=== PATIENT | male | born 1930 | race Caucasian/White ===

== ENCOUNTER 2018-02-23 15:21 | Inpatient (IN) | payer MEDICARE ==
[2018-02-23 17:08] VITALS: BMI 23.1
[2018-02-23] MEDS ORDERED: Furosemide 40 MG/4 ML VIAL SLOW IVP SCH (17:30)
[2018-02-23] MEDS ORDERED: Digoxin 0.5 MG/2 ML AMP SLOW IVP SCH ×2 (17:30→22:00)
[2018-02-23] MEDS ORDERED: Diltiazem HCl 125 MG, Admixture Fee 1 EACH in Sodium Chloride 0.9% 100 ML IVPB SCH (17:30)
[2018-02-23 17:43] LABS: #Basophils 0.1 thou/uL (0.0-0.2); #Eosinphils 0.1 thou/uL (0.0-0.7); #Lymphocytes 2.3 thou/uL (1.20-3.40); #Monocytes 0.8 thou/uL (0.11-0.59); #Neutrophils 5.2 thou/uL (1.40-6.50); %Basophils 0.6 % (0.0-1.0); %Eosinophils 1.6 % (0.0-10.0); %Lymphocytes 26.8 % (21.0-51.0); %Monocytes 9.4 % (0.0-10.0); %Neutrophils 61.5 % (42.0-75.0); Hemoglobin 14.2 g/dL (14.0-18.0); Mean Corpuscular HGB CONC 32.7 g/dL (32.0-36.0); Mean Corpuscular Hemoglobin 32.3 pg (27.0-31.0); Mean Corpuscular Volume 98.9 fL (78.0-98.0); Mean Platelet Volume 7.5 fL (7.4-10.4); Platelet Count 125 thou/uL (130-400); RBC Distribution Width 14.6 % (11.5-14.5); Red Blood Cell (RBC) Count 4.41 mill/uL (4.70-6.10); White Blood Cell (WBC) Count 8.4 thou/uL (4.8-10.8)
[2018-02-23 17:52] LABS: INR-International Normal Ratio 1.4; PTT 38.7 SEC (22.9-36.1); Prothrombin Time 17.6 SEC (12.0-14.7)
--- NOTE | 2018-02-23 18:00 | RAD ---
RADIOGRAPH CHEST 1 VIEW: Date: 02/23/2018 Time: 6:25 p.m. HISTORY: An 87-year-old male with new onset atrial fibrillation. COMPARISON: 04/19/2016 FINDINGS: There is magnification of the cardiac shadow. Mild, faint, patchy scattered densities in both lungs. Uncertain whether chronic or acute. These appear more prominent than on the prior study. No gross consolidation. Elevation of the left hemidiaphragm. IMPRESSION: 1. Nonspecific mild, faint bilateral pulmonary densities. 2. Cardiomegaly. 3. Elevated left hemidiaphragm. RENETTA [] POS: LAUREL
[2018-02-23 18:04] LABS: ALT (SGPT) 112 U/L (8-55); AST (SGOT) 53 U/L (5-34); Albumin 3.7 g/dL (3.4-4.8); Alkaline Phosphatase 147 U/L (40-150); Anion Gap 13 mmol/L (10-20); BUN (Urea Nitrogen) 36 mg/dL (8.4-25.7); Bilirubin, Total 3.9 mg/dL (0.2-1.2); Calc. Creatinine Clearance 33 mL/min (70-130); Calcium 8.6 mg/dL (7.8-10.44); Carbon Dioxide 25 mmol/L (23-31); Chloride 103 mmol/L (98-107); Estimated GFR-MDRD 47; Globulin 2.2 g/dL (2.4-3.5); Glucose 93 mg/dL (83-110); Magnesium 2.3 mg/dL (1.6-2.6); Potassium 3.2 mmol/L (3.5-5.1); Protein, Total 5.9 g/dL (5.8-8.1); Sodium 138 mmol/L (136-145)
[2018-02-23] MEDS ORDERED: Warfarin Sodium 5 MG TAB PO SCH (18:15)
[2018-02-23] MEDS: Carvedilol 3.125 MG TAB PO SCH (20:07)
[2018-02-23] MEDS: Rosuvastatin 20 MG TAB PO SCH (20:09)
[2018-02-23] MEDS: Enoxaparin Sodium 60 MG/0.6 ML SYRINGE SC SCH (20:09)
[2018-02-24] MEDS: Carvedilol 3.125 MG TAB PO SCH ×2 (08:47→20:57)
[2018-02-24] MEDS: Enoxaparin Sodium 60 MG/0.6 ML SYRINGE SC SCH ×2 (08:47→20:16)
[2018-02-24] MEDS: Potassium Chloride 20 MEQ TAB PO SCH ×2 (08:48→16:48)
[2018-02-24] MEDS ORDERED: Furosemide 40 MG/4 ML VIAL SLOW IVP SCH (09:00)
[2018-02-24] MEDS ORDERED: Potassium Chloride 20 MEQ TAB PO SCH (09:00)
[2018-02-24] MEDS ORDERED: Prevnar 13-Val Conj/PF 0.5 ML SYRINGE IM ONE (09:00)
[2018-02-24 09:31] LABS: INR-International Normal Ratio 1.3; Prothrombin Time 16.9 SEC (12.0-14.7)
[2018-02-24 09:44] LABS: Anion Gap 13 mmol/L (10-20); BUN (Urea Nitrogen) 32 mg/dL (8.4-25.7); Calc. Creatinine Clearance 37 mL/min (70-130); Calcium 8.6 mg/dL (7.8-10.44); Carbon Dioxide 25 mmol/L (23-31); Chloride 104 mmol/L (98-107); Cholesterol 99 mg/dl (< 200 Desired); Estimated GFR-MDRD 54; Glucose 108 mg/dL (83-110); HDL Cholesterol 20 mg/dL (>60 Neg Risk); LDL Cholesterol, Calculated 64 mg/dL; Potassium 3.1 mmol/L (3.5-5.1); Sodium 139 mmol/L (136-145); Triglycerides 75 mg/dL (Less than 150)
[2018-02-24] MEDS ORDERED: Warfarin Sodium 5 MG TAB PO SCH (17:00)
[2018-02-24] MEDS ORDERED: Digoxin 0.25 MG TAB PO SCH (18:30)
[2018-02-24] MEDS: Apixaban 5 MG TAB PO SCH (20:16)
[2018-02-24] MEDS: Rosuvastatin 20 MG TAB PO SCH (20:16)
[2018-02-25 06:03] LABS: Anion Gap 10 mmol/L (10-20); BUN (Urea Nitrogen) 28 mg/dL (8.4-25.7); Calc. Creatinine Clearance 44 mL/min (70-130); Calcium 8.5 mg/dL (7.8-10.44); Carbon Dioxide 30 mmol/L (23-31); Chloride 103 mmol/L (98-107); Estimated GFR-MDRD 65; Glucose 97 mg/dL (83-110); Potassium 3.4 mmol/L (3.5-5.1); Sodium 140 mmol/L (136-145)
[2018-02-25] MEDS: Digoxin 0.125 MG TAB PO SCH (08:26)
[2018-02-25] MEDS: Furosemide 40 MG TAB PO SCH (08:27)
[2018-02-25] MEDS: Apixaban 5 MG TAB PO SCH ×2 (08:27→20:24)
[2018-02-25] MEDS: Potassium Chloride 20 MEQ TAB PO SCH ×2 (08:27→17:40)
[2018-02-25 09:29] LABS: Anion Gap 11 mmol/L (10-20); BUN (Urea Nitrogen) 27 mg/dL (8.4-25.7); Calc. Creatinine Clearance 39 mL/min (70-130); Calcium 8.5 mg/dL (7.8-10.44); Carbon Dioxide 30 mmol/L (23-31); Chloride 102 mmol/L (98-107); Estimated GFR-MDRD 57; Glucose 142 mg/dL (83-110); Potassium 4.1 mmol/L (3.5-5.1); Sodium 139 mmol/L (136-145)
[2018-02-25] MEDS: Carvedilol 3.125 MG TAB PO SCH ×2 (09:56→20:24)
--- NOTE | 2018-02-25 12:21 | PQF ---
CLINICAL DOCUMENTATION IMPROVEMENT CLARIFICATION FORM: ICD-10 Updated PLEASE DO AN ADDENDUM TO THE PROGRESS NOTE WITH ANY DOCUMENTATION UPDATES OR ADDITIONS AND CARRY THROUGH TO DC SUMMARY. THANK YOU. DATE: 02/25 ATTN: DR. HUGO GOLDMAN Please exercise your independent, professional judgment in responding to the clarification form. Clinical indicators are provided on the bottom of this form for your review. Please check appropriate box(s): SYSTOLIC HEART FAILURE ACUITY [ ] Acute [ x ] Acute on Chronic [ ] Chronic [x ] Other diagnosis _new onset atrial fibrillation with fast ventricular response, HR 146/min [ ] Unable to determine For continuity of documentation, please document condition throughout progress notes and discharge summary. Thank You. CLINICAL INDICATORS - SIGNS / SYMPTOMS / LABS PHYSICIAN H&P 02/23: WIGGINS WALKING IN THE HOUSE. 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 DENIES PND OR ORTHOPNEA. PN DATED 02/24: EXTREMITIES: 1+ EDEMA; ASSESSMENT: 4) SYSTOLIC CHF PN DATED 02/25: EXTREMITIES: NO EDEMA; ASSESSMENT: 3) SYSTOLIC CHF, EF 25-30% ECHO 02/24: EF 25-30%, L [facility] MILDLY DILATED, MOD TO SEVERE MV REGURGITATION, RUPTURED CHORDAE OF LEAFLET OF MITRAL VALVE, MOD AORTIC REGURGITATION, SEVERE TRICUSPID REGURGITATION RISKS: NEW ONSET AFIB VALVULAR HEART DISEASE HTN TREATMENTS: IV DIURETIC (LASIX 02/23 & , CHANGED TO PO 02/25) TELEMETRY MONITORING ECHO THANK YOU! Willa (This form is maintained as a part of the permanent medical record) 2014 [employer]. All Rights Reserved Willa Jung RN, BSN [email or web address] Office: [phone] [facility]
--- NOTE | 2018-02-25 12:29 | PQF ---
CLINICAL DOCUMENTATION IMPROVEMENT CLARIFICATION FORM: ICD-10 Updated PLEASE DO AN ADDENDUM TO THE PROGRESS NOTE WITH ANY DOCUMENTATION UPDATES OR ADDITIONS AND CARRY THROUGH TO DC SUMMARY. THANK YOU. DATE: 02/25 ATTN : DR. HUGO GOLDMAN Please exercise your independent, professional judgment in responding to the clarification form. Clinical indicators are provided on the bottom of this form for your review. Please check appropriate box(s): [ x ] Acute Renal Failure (ARF) / Acute Kidney Injury (RANDELL) [ ] Other Etiology or underlying conditions related to the diagnosis of ARF/ RANDELL: [ x ] Acute on Chronic Renal Failure please specify Stage of CKD __III ( see below) [ ] CKD without ARF/RANDELL please specify Stage of CKD [ ] Other diagnosis [ ] Unable to determine National Kidney Foundation Guidelines for CKD Staging Stage I Kidney damage with normal or increased GFR GFR > 90 Stage II Kidney damage with mildly decreased GFR GFR 60-89 Stage III Kidney damage with moderately decreased GFR GFR 30-59 Stage IV Kidney damage with severely decreased GFR GFR 16-29 Stage V Kidney failure GFR<15 ESRD End Stage Renal Disease On dialysis For continuity of documentation, please document condition throughout progress notes and discharge summary. Thank You. CLINICAL INDICATORS - SIGNS / SYMPTOMS / LABS BUN: 36 CR: 1.41 GFR: 47 (ADMIT, 02/23) 32 1.27 54 (02/24) 28 1.07 65 (02/25, 0530) 27 1.20 57 (02/25, 09) RISK FACTORS: IV DIURETIC (LASIX 02/23 & ) SYSTOLIC CHF HTN TREATMENT: SERIAL LABS THANK YOU! Willa (This form is maintained as a part of the permanent medical record) 2014 [employer]. All Rights Reserved Willa Jung RN, BSN [email or web address] Office: [phone] [facility]
[2018-02-25] MEDS: Rosuvastatin 20 MG TAB PO SCH (20:24)
[2018-02-26 05:40] LABS: Anion Gap 11 mmol/L (10-20); BUN (Urea Nitrogen) 24 mg/dL (8.4-25.7); Calc. Creatinine Clearance 47 mL/min (70-130); Calcium 8.6 mg/dL (7.8-10.44); Carbon Dioxide 29 mmol/L (23-31); Chloride 102 mmol/L (98-107); Estimated GFR-MDRD 71; Glucose 107 mg/dL (83-110); Potassium 3.8 mmol/L (3.5-5.1); Sodium 138 mmol/L (136-145)
[2018-02-26 05:43] LABS: Digoxin 1.13 ng/mL (0.8-2.0)
[2018-02-26 07:49] VITALS: BP 119/75; TEMP 98.3
[2018-02-26] MEDS: Potassium Chloride 20 MEQ TAB PO SCH (08:10)
[2018-02-26] MEDS: Furosemide 40 MG TAB PO SCH (08:10)
[2018-02-26] MEDS: Digoxin 0.125 MG TAB PO SCH (08:10)
[2018-02-26] MEDS: Carvedilol 3.125 MG TAB PO SCH (08:10)
[2018-02-26] MEDS: Apixaban 5 MG TAB PO SCH (08:10)
[2018-02-26 09:34] LABS: Anion Gap 9 mmol/L (10-20); BUN (Urea Nitrogen) 23 mg/dL (8.4-25.7); Calc. Creatinine Clearance 46 mL/min (70-130); Calcium 8.4 mg/dL (7.8-10.44); Carbon Dioxide 32 mmol/L (23-31); Chloride 100 mmol/L (98-107); Estimated GFR-MDRD 69; Glucose 96 mg/dL (83-110); Potassium 3.6 mmol/L (3.5-5.1); Sodium 137 mmol/L (136-145)
--- NOTE | 2018-02-26 12:45 | DIS ---
DISCHARGE DIAGNOSES: 1. New onset atrial fibrillation with fast ventricular response - 146 per minute in the office. 2. Diarrhea - resolved. 3. Acute on chronic systolic heart failure with ejection fraction of 25-30%. 4. Moderate to severe mitral regurgitation. 5. Abnormal Cardiolite in 08/2016 with patient declining cardiac catheterization. 6. Hypercholesterolemia, well controlled. 7. Hypertension. DISCHARGE MEDICATIONS: Eliquis 5 mg b.i.d., carvedilol 3.125 b.i.d., digoxin 0.125 daily, furosemide 40 mg q.a.m., potassium chloride 20 mEq b.i.d., Crestor 20 mg at bedtime. DISCHARGE DISPOSITION: The patient will be seen in 1 month in [place] with basic metabolic panel and digoxin level being obtained. HOSPITAL COURSE: Mr. Haley presented to the office complaining of dyspnea on exertion with just walking in the house. He also had diarrhea which was not present once he was admitted to the hospital. His son stated that the last time that he seemed to have normal energy level was approximately 6 weeks ago. He denied any chest discomfort. EKG in the office revealed atrial fibrillation with fast ventricular response with rate of 146 per minute. He also had peripheral edema and bilateral bibasilar crackles. He was admitted and given intravenous digoxin as well as intravenous furosemide. He was loaded with digoxin and the day of discharge, his digoxin level was 1.13. When he was admitted he did have hypokalemia with potassium of 3.2. This was replaced and his dose was increased from 20 mEq daily to 20 mEq b.i.d. At the time of discharge, he was walking in the [place] without significant dyspnea like he was having previously. His heart rate appeared to be well controlled. Mr. Haley (as before) did not wish any type of procedures such as transesophageal echo and cardioversion and therefore, the decision was made for anticoagulation and rate control alone. Certainly his long-term prognosis with his left ventricular dysfunction and moderate to severe mitral regurgitation as well as hypotension at times, is poor. LIU
== END 2018-02-26 10:53 | disposition home or self-care (01) | DRG 291 ==
LOC: 2SE 15:21
PROVIDERS: ADMIT Internal Medicine Cardiovascular Disease; ATTEND Internal Medicine Cardiovascular Disease
DX: I13.0 Hypertensive heart and chronic kidney disease with heart failure and stage 1 through stage 4 chronic kidney disease, or unspecified chronic kidney disease (principal); I50.23 Acute on chronic systolic (congestive) heart failure; N17.9 Acute kidney failure, unspecified; R19.7 Diarrhea, unspecified; I34.0 Nonrheumatic mitral (valve) insufficiency; E78.00 Pure hypercholesterolemia, unspecified; E87.6 Hypokalemia; Z87.891 Personal history of nicotine dependence; N18.3 Chronic kidney disease, stage 3 (moderate); I48.91 Unspecified atrial fibrillation
CPT/HCPCS: 36415; 71045; 80048; 80061; 80162; 83735; 84443; 85025; 85610; 85730; 90471; 90670; 93005; 93010; 93306; A4216; G0009; J1160; J1650; J1940; J7050